=== PATIENT | female | born 1965 | race Caucasian/White ===

== ENCOUNTER 2019-05-02 23:50 | Inpatient (IN) | payer OTHER ==
[~2019-05-02] VITALS: Ht 160 cm; Wt 63.0 kg
[2019-05-03] MEDS ORDERED: ONDANSETRON (ODT) 4 MG TAB ODT STA (01:13)
[2019-05-03] MEDS ORDERED: KETOROLAC 30 MG INJ IM STA (01:13)
[2019-05-03] MEDS ORDERED: HYDROCODONE/APAP (5/325) TAB PO ONE (01:30)
[2019-05-03] MEDS ORDERED: ACETAMINOPHEN 325 MG TAB PO PRN ×2 (05:00→07:30)
[2019-05-03] MEDS ORDERED: ONDANSETRON 4 MG INJ IV PRN ×2 (05:00→07:30)
[2019-05-03 06:15] VITALS: BP 145/82; PULSE 73; RESP 18
[2019-05-03] MEDS ORDERED: HYDROCODONE/APAP (5/325) TAB PO PRN (07:30)
[2019-05-03] MEDS ORDERED: morphine 2 MG INJ IV PRN (07:30)
[2019-05-03] MEDS ORDERED: ZOLPIDEM 5 MG TAB PO PRN (07:30)
[2019-05-03] MEDS ORDERED: NACL 0.9% 3 ML SYG IV SCH (07:30)
[2019-05-03] MEDS ORDERED: DOCUSATE SODIUM 100 MG CAP PO PRN ×2 (07:30→19:00)
[2019-05-03 07:49] VITALS: Ht 160 cm; Wt 63.0 kg
[2019-05-03 08:00] VITALS: BP 123/65; PULSE 64; RESP 16
[2019-05-03 14:00] VITALS: BP 118/57; PULSE 73; RESP 16
[2019-05-03] MEDS ORDERED: MAGNESIUM HYDROXIDE 30ML CUP PO ONE (19:00)
[2019-05-03] MEDS ORDERED: MAGNESIUM HYDROXIDE 30ML CUP PO PRN (19:00)
[2019-05-03 20:56] VITALS: BP 140/76; PULSE 69; RESP 16
[2019-05-04 02:50] VITALS: BP 111/64; PULSE 56; RESP 18
[2019-05-04 08:00] VITALS: BP 100/55; PULSE 56; RESP 16
[2019-05-04] MEDS ORDERED: FUROSEMIDE 20 MG INJ IV ONE (12:00)
[2019-05-04 14:00] VITALS: BP 108/59; PULSE 70; RESP 16
== END 2019-05-04 17:00 | disposition home or self-care (01) | DRG 694 ==
LOC: FTE 23:50 → PP2 05-03 04:40
PROVIDERS: ADMIT Internal Medicine; ATTEND Internal Medicine
DX: N13.1 Hydronephrosis with ureteral stricture, not elsewhere classified (principal)
CPT/HCPCS: 74176; 78708; 80048; 80053; 81001; 83036; 83690; 83735; 84100; 85025; 87086; A9562; J1885